=== PATIENT | female | born 1980 | race Caucasian/White ===

== ENCOUNTER 2018-08-27 11:56 | Outpatient (REF) | payer OTHER, SELFPAY ==
--- NOTE | 2018-08-27 08:30 | SKI_PTH ---
PATIENT: Ramandeep García LOC: [facility] U#:[id number] AGE/SX: 38/F ROOM: RE08/27/[address]: Opal López : 1980 BED: DIS: 08/27/2018 SPEC #: [id number] RECD: 08/30/18 12:16 STATUS: SOFYA REJude #: [id number] JUDE: 08/27/18 08:[address]: Opal López DEPT: Surgical Specimen RECD BY: Karrie Howell ENTERED: 08/30/18 12:16 SP TYPE: NELIA FITZGERALD DR: Margot Castillo Tissues: 1 - SKIN BIOPSY(SHAVE/PUNCH) Procedures: SKIN LEVEL 4 Comments: [id number]
== END 2018-08-27 12:16 ==
LOC: NCHCN 11:56
PROVIDERS: PCP Nurse Practitioner Family; Visit Provider Family Medicine
DX: D48.5 Neoplasm of uncertain behavior of skin (principal)
CPT/HCPCS: 88305

== ENCOUNTER 2023-11-27 01:58 | Outpatient (CLI) | payer BC, SELFPAY ==
[2023-11-27 10:57] LABS: Abs Immature Grans 0.01 10^3/uL (0.0-0.06); Absolute Basophil Count 0.03 10^3/uL (0.0-0.2); Absolute Eosinophil Count 0.03 10^3/uL (0.0-0.7); Absolute Lymphocyte Count 1.31 10^3/uL (1.2-3.4); Absolute Monocyte Count 0.49 10^3/uL (0.1-0.8); Absolute Neutrophil Count 2.34 10^3/uL (1.2-6.7); Basophils % 0.7; Eosinophils % 0.7; HCT 40.3 % (36.0-46.0); HGB 13.8 g/dL (11.2-15.7); Immature Grans % 0.2; Lymphocytes % 31.1; MCH 30.1 pg (27.0-33.0); MCHC 34.2 % (32.0-36.0); MCV 88 fL (80-95); MPV 9.2 fL (8.0-11.0); Monocytes % 11.6; Neutrophils % 55.7; Platelet Count 184 10^3/uL (130-400); RBC 4.58 10^6/uL (3.93-5.22); RDW 12.6 % (11.7-14.6); RDW-SD 40.3 fL; WBC 4.21 10^3/uL (4.4-10.8)
[2023-11-27 11:35] LABS: Anion Gap 8.2 mmol/L (3-11); BUN 12 mg/dL (7-18); CO2 27.8 mmol/L (21.0-32.0); CREATININE 0.8 mg/dL (0.55-1.02); Calcium 9.3 mg/dL (8.5-10.1); Calculated LDL 109 mg/dL (<100); Chloride 105 mmol/L (98-107); Cholesterol 194 mg/dL (<200); Estimated GFR 93.12 (mL/min/1.73m2); Glucose 90 mg/dL (74-106); HDL Cholesterol 70 mg/dL (40-60); Potassium 3.9 mmol/L (3.5-5.1); Sodium 141 mmol/L (136-145); Triglyceride 79 mg/dL (<150)
== END 2023-11-27 01:59 | disposition home or self-care (01) ==
LOC: LBO 01:59
PROVIDERS: PCP Nurse Practitioner Family; Visit Provider Nurse Practitioner Family
DX: Z00.00 Encounter for general adult medical examination without abnormal findings (principal)
CPT/HCPCS: 36415; 80048; 80061; 84443; 85025

== ENCOUNTER → 2024-02-26 03:58 | Outpatient (CLI) | payer OTHER, BC, SELFPAY ==
--- NOTE | 2024-02-26 09:53 | DI.RAD_ITS ---
Exam(s) XR HAND RT COMPLETE XR WRIST RT COMPLETE EXAM: XR HAND RT COMPLETE XR wrist RT complete CLINICAL HISTORY: pain rt hand, M79.641. TECHNIQUE: 2D digital imaging was performed of the right wrist and hand. Six images were obtained. AP, lateral and oblique views were obtained. COMPARISON: No previous for comparison. FINDINGS: BONES: No acute fracture is present. No bony destructive lesion is seen. JOINTS: No dislocation present. The joint spaces are well maintained. SOFT TISSUE: Normal. IMPRESSION: Unremarkable radiographs of the right wrist and hand. DATA REPOSITORY: RADIATION DOSE DELIVERED:
== END ==
PROVIDERS: PCP Nurse Practitioner Family; Visit Provider Nurse Practitioner Family
DX: M79.641 Pain in right hand (principal); M25.531 Pain in right wrist
CPT/HCPCS: 73110; 73130